=== PATIENT | male | born 1960 | race African-American/Black ===

== ENCOUNTER 2021-03-10 11:15 | Emergency (ER) | payer BC ==
[2021-03-10] MEDS ORDERED: FLUORESCEIN NA 1 EA STRIP OD ONE (11:16)
[2021-03-10] MEDS ORDERED: FLUORESCEIN NA 1 EA STRIP ONE (11:25)
[2021-03-10] MEDS ORDERED: TETRACAINE 0.5% OPHTH SOLN 2 ML BOTTLE ONE (11:26)
[2021-03-10] MEDS ORDERED: TETRACAINE 0.5% HCL 0.6ML DROPPER.BOTTLE OS ONE (11:26)
[2021-03-10 11:30] VITALS: BP 145/89; PULSE 71; TEMP 97.9; BMI 24.7
== END 2021-03-10 12:21 | disposition home or self-care (01) ==
LOC: FER 11:15
DX: H57.89 Other specified disorders of eye and adnexa (principal)
CPT/HCPCS: 99283-25